=== PATIENT | female | born 1955 | race Caucasian/White ===

== ENCOUNTER 2021-04-30 14:49 | Outpatient (REF) | payer MEDICARE, OTHER, SELFPAY | END 2021-04-30 14:50 | disposition home or self-care (01) | LOC: HO.HMGCLDS 14:49 | PROVIDERS: Visit Provider Internal Medicine | DX: Z20.822 Contact with and (suspected) exposure to COVID-19 (principal) | CPT/HCPCS: C9803; U0003; U0005 ==

== ENCOUNTER 2021-08-10 12:15 | Outpatient (REF) | payer MEDICARE, OTHER, SELFPAY ==
[2021-08-10 12:27] LABS: MANUAL DIFF FLAG NO
[2021-08-10 12:37] LABS: Basophils Absolute Auto 0.1 X10*3/uL (0.0-0.2); Eosinophils Absolute Auto 0.2 X10*3/uL (0.0-0.4); Eosinophils Percent Auto 3.1 % (0-4); Hematocrit 38.1 % (37.0-47.0); Hemoglobin 12.2 g/dl (12.0-16.0); Imm Gran Abs Auto 0.01 X10*3/uL (0.00-0.03); Imm Gran Pct Auto 0.2 % (0.0-0.4); Lymphocytes Absolute Auto 1.6 X10*3/uL (1.2-4.9); Lymphocytes Percent Auto 30.3 % (20-40); Mean Corpuscular Hemoglobin 30.6 pg (27.0-33.0); Mean Corpuscular Volume 95.5 fL (80.0-98.0); Mean Platelet Volume 9.7 fL (9.4-12.3); Monocytes Absolute Auto 0.5 X10*3/uL (0.1-1.2); Monocytes Percent Auto 9.2 % (2-11); Neutrophils Absolute Auto 2.9 x10*3/uL (2.0-8.3); Neutrophils Percent Auto 56.2 % (45-73); Platelet Count 247 X10*3/uL (160-400); Red Blood Count 3.99 X10*6/uL (4.20-5.50); Red Cell Distribution Width 12.2 % (11.0-16.0); White Blood Count 5.2 X10*3/uL (4.8-10.8)
[2021-08-10 13:07] LABS: Alanine Aminotransferase 13 U/L (0-31); Albumin Level 4.3 g/dL (3.5-5.0); Alkaline Phosphatase 68 U/L (39-117); Anion Gap 13 (12-20); Aspartate Amino Transferase 22 U/L (5-31); Bilirubin Total 0.4 mg/dL (0.0-1.0); Blood Urea Nitrogen 16 mg/dL (9-16); Calcium 9.9 mg/dL (8.4-10.2); Carbon Dioxide 27 mmol/L (22-29); Chloride 105 mmol/L (96-108); Cholesterol 272 mg/dL; Estimated Glomerular Filt Rate > 60; Glucose Fasting 83 mg/dL (60-99); HDL Cholesterol 127 mg/dL; LDL Cholesterol Calculated 122 mg/dl; Potassium 4.8 mmol/L (3.3-5.1); Sodium 140 mmol/L (135-145); Total Protein 6.7 g/dL (6.5-8.0); Triglycerides 118 mg/dL
[2021-08-10 13:27] LABS: TSH reflex Free T4 1.58 uIU/mL (0.32-4.0); Vitamin D 25-OH Total 28.4 ng/mL (>30)
[2021-08-10 13:31] LABS: Appearance Urine HAZY; Color Urine YELLOW; Glucose Urine UA NEG (NEG); Leukocyte Esterase Urine NEG (NEG); Nitrite Urine NEG (NEG); PH 6.5 (5.0-8.0); Urine Blood NEG (NEG); Urine Ketones NEG (NEG); Urine Protein NEG (NEG-TRACE)
== END 2021-08-10 12:16 | disposition home or self-care (01) ==
LOC: HO.LAB 12:15
PROVIDERS: PCP Internal Medicine; Visit Provider Internal Medicine
DX: E78.00 Pure hypercholesterolemia, unspecified (principal); E55.9 Vitamin D deficiency, unspecified; I10 Essential (primary) hypertension
CPT/HCPCS: 36415; 80053; 80061; 81003; 82306; 84443; 85025

== ENCOUNTER 2022-04-06 10:37 | Outpatient (REF) | payer MEDICARE, OTHER, SELFPAY ==
--- NOTE | ~2022-04-06 | MM_ITS ---
EXAMINATION: BONE DENSITOMETRY CLINICAL INDICATION: Asymptomatic menopausal state. COMPARISON: This is the patient's baseline examination. TECHNIQUE: Using a [employer] DXA System (software version: 13.1) manufactured by [employer] [place], dual-energy x-ray absorptiometry was performed of the lumbar spine and left hip. The images are of good technical quality. Summary results are attached. FINDINGS: AP SPINE L1-L4: There is scoliosis present convex left. BMD 1.080 g/cm2, Z-score 1.5, T-score -0.8, normal. LEFT FEMUR, NECK: BMD 0.790 g/cm2, Z-score 0.3, T-score -1.8, osteopenia. LEFT FEMUR, TOTAL: BMD 0.766 g/cm2, Z-score 0.0, T-score -1.9, osteopenia. IDENTIFIED RISK FACTORS: Height loss. Menopause. HISTORY OF FRACTURE: None listed. MEDICATIONS: Vitamin D. ERT. MM/XR DEXA axial skeleton IMPRESSION: 1. DIAGNOSIS: Osteopenia based on the lowest T-score value of -1.9 in the femoral neck applying World Health Organization criteria. 2. 10-YEAR FRACTURE RISK PREDICTION, FRAX: Major osteoporotic fracture (clinical spine, forearm, hip or shoulder) 8.9%. Hip fracture 1.6%. 3. Treatment Recommendations: NOF guidelines recommend consideration for treatment in postmenopausal women and men age 50 and older presenting with the following: -A hip or vertebral (clinical or morphometric) fracture. -T-score less than or equal to -2.5 at the femoral neck or spine after appropriate evaluation to exclude secondary causes. -Low bone mass at the hip or spine and a 10-year fracture probability by FRAX of greater than or equal to 3% for hip fracture or greater than or equal to 20% for major osteoporotic fracture based on the [place] adapted WHO algorithm. 4. Other Recommendations: All treatment decisions require clinical judgment and consideration of individual patient factors, including patient preferences, comorbidities, previous drug use, risk factors not captured in the FRAX model (e.g. frailty, falls, vitamin D deficiency, increased bone turnover, interval significant decline in bone density) and possible under or overestimation of fracture risk by FRAX. Additional medical evaluation for secondary cause of low bone mineral density may be appropriate. FUTURE SCAN RECOMMENDATION: People with diagnosed cases of osteoporosis or at high risk for fracture should have regular bone mineral density tests. For patients eligible for Medicare, routine testing is allowed once every 2 years. The testing frequency can be increased to one year for patients who have rapidly progressing disease, those who are receiving or discontinuing medical therapy to restore bone mass, or have additional risk factors.
== END 2022-04-06 10:38 | disposition home or self-care (01) ==
LOC: HO.MAMMO 10:37
PROVIDERS: Visit Provider Internal Medicine
DX: Z13.820 Encounter for screening for osteoporosis (principal); Z78.0 Asymptomatic menopausal state
CPT/HCPCS: 77080

== ENCOUNTER 2023-02-02 09:12 | Outpatient (REF) | payer MEDICARE, OTHER, SELFPAY ==
[2023-02-02 09:33] LABS: MANUAL DIFF FLAG NO
[2023-02-02 10:07] LABS: Basophils Percent Auto 0.7 % (0-2); Eosinophils Absolute Auto 0.2 X10*3/uL (0.0-0.4); Eosinophils Percent Auto 5.7 % (0-4); Hematocrit 38.6 % (37.0-47.0); Hemoglobin 12.5 g/dl (12.0-16.0); Imm Gran Abs Auto 0.01 X10*3/uL (0.00-0.03); Imm Gran Pct Auto 0.2 % (0.0-0.4); Lymphocytes Absolute Auto 1.3 X10*3/uL (1.2-4.9); Lymphocytes Percent Auto 30.9 % (20-40); Mean Corpuscular HGB Conc 32.4 g/dl (31.0-35.0); Mean Corpuscular Hemoglobin 30.8 pg (27.0-33.0); Mean Corpuscular Volume 95.1 fL (80.0-98.0); Monocytes Absolute Auto 0.5 X10*3/uL (0.1-1.2); Monocytes Percent Auto 11.1 % (2-11); Neutrophils Absolute Auto 2.1 x10*3/uL (2.0-8.3); Neutrophils Percent Auto 51.4 % (45-73); Platelet Count 252 X10*3/uL (160-400); Red Blood Count 4.06 X10*6/uL (4.20-5.50); Red Cell Distribution Width 12.9 % (11.0-16.0); White Blood Count 4.1 X10*3/uL (4.8-10.8)
[2023-02-02 10:32] LABS: Appearance Urine Clear; Color Urine Yellow; Glucose Urine UA Negative (Negative); Leukocyte Esterase Urine Negative (Negative); Nitrite Urine Negative (Negative); Specific Gravity - Urine 1.015 (1.005-1.025); Urine Blood Negative (Negative); Urine Ketones Negative (Negative); Urine Protein Trace mg/dL (Neg-Trace)
[2023-02-02 10:57] LABS: Alanine Aminotransferase 12 U/L (0-31); Alkaline Phosphatase 62 U/L (39-117); Anion Gap 14 (12-20); Aspartate Amino Transferase 20 U/L (5-31); Bilirubin Total 0.5 mg/dL (0.0-1.0); Blood Urea Nitrogen 13 mg/dL (9-16); Calcium 9.6 mg/dL (8.4-10.2); Carbon Dioxide 26 mmol/L (22-29); Chloride 107 mmol/L (96-108); Cholesterol 264 mg/dL (<200); Estimated Glomerular Filt Rate > 60; Glucose Fasting 102 mg/dL (60-99); HDL Cholesterol 128 mg/dL (>40); LDL Cholesterol Calculated 120 mg/dL (<100); Potassium 4.2 mmol/L (3.3-5.1); Sodium 143 mmol/L (135-145); Total Protein 6.6 g/dL (6.5-8.0); Triglycerides 83 mg/dL (<150)
[2023-02-02 10:58] LABS: TSH reflex Free T4 2.01 uIU/mL (0.32-4.0); Vitamin D 25-OH Total 42.9 ng/mL (>30)
== END 2023-02-02 09:13 | disposition home or self-care (01) ==
LOC: HO.LAB 09:12
PROVIDERS: PCP Internal Medicine; Visit Provider Internal Medicine
DX: R30.0 Dysuria (principal); E78.00 Pure hypercholesterolemia, unspecified; E55.9 Vitamin D deficiency, unspecified; I10 Essential (primary) hypertension
CPT/HCPCS: 36415; 80053; 80061; 81003; 82306; 84443; 85025

== ENCOUNTER 2023-04-18 15:38 | Outpatient (AMB) | payer MEDICARE, OTHER, SELFPAY ==
[2023-04-18 16:04] VITALS: BP 124/80; BMI 15.8
--- NOTE | 2023-04-18 16:04 | A.OFFPC_ITS ---
Vital Signs 04/18/23 16:04 Height 5 ft 5 in Weight 95 lb 4 oz BMI 15.8 BP 124/80 Blood Pressure Location Lt brachial Position Sitting Pulse Source Pulse Oximeter Oxygen Delivery Method Room Air Intake Visit Reasons: HTN, osteopenia [employer] Consultant Required: No Accompanied by: Self / Same As Patient Allergies No Known Allergies Allergy (Verified 09/09/23 12:40) Medication List - Last Reconciled 04/18/23 by Ochoa Jaramillo MD acyclovir 200 mg PO TID 10 days carbamazepine 200 mg PO BID conj estrog-medroxyprogest torsten 0.45-1.5 mg (Prempro) 1 tab PO DAILY lisinopril 2.5 mg PO DAILY omeprazole 20 mg PO DAILY Tobacco use date assessed: 04/18/23 Fall risk assessment: No Falls in past year Last assessed Fall Risk: 04/18/23 Dental Screening Dental Screen Date: 04/18/23 Did you have a dental visit in the last 12 months?: Yes Did you have a dental problem in the last 6 months where you did not have access to dental care?: No Was dental information given to patient?: Patient has dentist HPI HTN, osteopenia HPI Details Patient comes in today for her follow up visit States that she feels okay She denies any headaches or dizziness Denies any chest pains, no SOB No nausea/vomiting, no abdominal pain No change in bowel habits noted Had her follow up labs done a couple of months ago - to discuss her results States that she has tried cutting back on her hormone pill as previously discussed but finds that she cannot take it at less than every other day as she would start to experience hot flashes and some menopausal symptoms when she cuts it back further from that and is requesting to allow her to just stay on every other day and allow her to live her life Is also requesting for Rx for an antibiotic that she can keep on hand in case she gets a flare up of her diverticulitis States that she will not take it unless absolutely needed and based on her past experiences, her outcome is usually much better and she recovers quicker if she is able to take her antibiotic earlier - states that her previous PCP has been doing this for her for years and it always ends up working out well for her and she does not necessarily have to take her antibiotic regularly and only when she gets a flare up of diverticulitis PFSH Medical History Diverticulitis Osteopenia GERD without esophagitis Colon cancer screening declined Recurrent cold sores Benign essential hypertension Trigeminal neuralgia of right side of face Surgical History History of surgery Family History Father Heart disease Diabetes Hypertension CVD (cardiovascular disease) Mother Brain tumor Brother Stroke Sister No problems noted. Sister No problems noted. Daughter No problems noted. Social History Housing: House Alcohol intake: current Alcohol intake frequency: holidays/special occasions only Patient Tobacco Use Status: Never used Tobacco e-Cigarette/Vaping Use: Never Used Second Hand Smoke Exposure: Yes service: No Current occupational status: retired Cognitive needs: No Hearing needs: No Vision needs: Yes (reading glasses) Questionnaire PHQ-9 Over the last 2 weeks, how often have you been bothered by any of the following problems? 1. Little interest or pleasure in doing things: not at all 2. Feeling down, depressed, or hopeless: not at all 3. Trouble falling or staying asleep, or sleeping too much: not at all 4. Feeling tired or having little energy: not at all 5. Poor appetite or overeating: not at all 6. Feeling bad about yourself - or that you are a failure or have let yourself or your family down: not at all 7. Trouble concentrating on things, such as reading the newspaper or watching television: not at all 8. Moving or speaking so slowly that other people could have noticed. Or the opposite - being so fidgety or restless that you have been moving around a lot more than usual: not at all 9. Thoughts that you would be better off or of hurting yourself in some way: not at all Total score: 0 Depression Screening Interpretation: Negative Depression Screening Done: Yes 04884 - PHQ-9 Billing: Yes Source: Developed by Drs. Guille Villa, Candy Bliss, Don Anderson and colleagues, with an educational macario from [employer]. Thrive Questionnaire Date Thrive assessed: 04/18/23 I am a: Patient What is your living situation today?: I have a steady place to live Within the past 12 months, did the food you bought not last and you didn't have the money to get more?: Never true Within the past 12 months, did you worry whether your food would run out before you got money to buy more?: Never true Do you have trouble paying for medicines?: No Do you have trouble getting transportation to medical appointments?: No Do you have trouble paying your heating and electricity bill?: No Do you have trouble taking care of your child, family member or friend?: No Do you have trouble with day-to-day activities such as bathing, preparing meals, shopping, managing finances, etc.?: No Are you currently unemployed and looking for a job?: No Are you interested in more education?: No Please select the resources that you would like help with: None Currently or been in a relationship where the following occur: no concerns reported AUDIT C Alcohol Use Questionnaire (AUDIT-C) 1. How often do you have a drink containing alcohol?: Monthly or less 2. How many drinks containing alcohol do you have on a typical day when you are drinking?: 1 or 2 3. How often do you have six or more drinks on one occasion?: Never Total Score: 1 Score Reviewed/Action Taken: Yes MARKEL-7 AMB Questionnaire MARKEL-7 Date MARKEL - 7 assessed: 04/18/23 Feeling nervous, anxious, or on edge: 0 = Not at all Not being able to stop or control worryin = Not at all Worrying too much about different things: 0 = Not at all Trouble relaxin = Not at all Being so restless that it is hard to sit still: 0 = Not at all Becoming easily annoyed or irritable: 0 = Not at all Feeling afraid as if something awful might happen: 0 = Not at all Total MARKEL-7 score (0-4 normal; 5-9 mild; 10-14 moderate; 15-21 severe): 0 Source: Developed by Drs. Guille Villa, Candy Bliss, Don Anderson and colleagues, with an educational macario from [employer]. Review of Systems Const Denies chills, Denies fatigue, Denies fever(s) and Denies headache(s) ENT Details: occasional cold sores Denies dysphagia, Denies dizziness, Denies otalgia, Denies headache(s), Denies neck pain, Denies odynophagia and Denies sore throat Card Denies chest pain, Denies palpitations and Denies dyspnea Resp Denies cough, Denies dyspnea and Denies wheezing GI Denies abdominal pain, Denies constipation, Denies dysphagia, Denies heartburn, Denies diarrhea, Denies nausea, Denies odynophagia and Denies vomiting Denies difficulty voiding, Denies nocturia, Reports hot flashes (see HPI), Denies dysuria and Denies urinary urgency Musc Denies back pain, Denies arthralgias and Denies neck pain Skin/Breast Denies rash Neuro Denies dizziness and Denies headache(s) Psych Denies anxiety and Denies depression Endo Denies fatigue and Denies palpitations Alan/Lymph Denies easy bruising Aller/Immun Denies wheezing Physical exam (Primary Care) Vital Signs: Last Vital Signs BP 124/80 04/18/23 16:04 Oxygen Delivery Method Room Air 04/18/23 16:04 BMI result Body Mass Index 15.8 Tobacco/Smoking Status: Tobacco use Status Tobacco use date assessed 04/18/23 04/18/23 16:05 Patient Tobacco Use Status Never used Tobacco 04/18/23 16:05 e-Cigarette/Vaping Use Never Used 04/18/23 16:05 PHQ-9: PHQ-9 Score PHQ-9: Total score 0 04/19/23 09:26 Depression Screening Interpretation: Negative Thrive Assessment: Date of Thrive Assessment Date Thrive assessed 04/18/23 04/18/23 16:05 Currently or been in a relationship where the following occur: no concerns reported Const General: no acute distress and alert HENMT Ears: TM's normal bilaterally and EAC's normal Throat: Yes posterior oropharynx normal and Yes tonsils normal (no TP congestion) Neck Neck: Yes no lymphadenopathy and Yes supple Resp Auscultation: clear to auscultation bilaterally, no rales and no wheezes Cardio Rate: regular rate Rhythm: regular rhythm Heart sounds: no murmurs GI Palpation (GI): Soft to palpation and nontender Auscultation: normal bowel sounds General: Yes no CVA tenderness Back/Spine/Pelvis Back: no CVA tenderness Skin Rashes: no rashes Extrem General: Yes no clubbing, cyanosis or edema Results Reviewed Results Reviewed: Laboratory Tests 02/02/23 02/02/23 09:32 09:35 WBC 4.1 L Hgb 12.5 Hct 38.6 Plt Count 252 Sodium 143 Potassium 4.2 Creatinine 0.79 Estimated GFR > 60 Fasting Glucose 102 H Calcium 9.6 AST 20 ALT 12 Triglycerides 83 Cholesterol 264 H LDL Cholesterol, Calc 120 H HDL Cholesterol 128 25-OH Vitamin D Total 42.9 TSH 2.01 Ur Specific [place] 1.015 Urine Protein Trace Urine Glucose (UA) Negative Assessment and Plan Assessment & Plan (1) Trigeminal neuralgia of right side of face: Code(s): G50.0 - Trigeminal neuralgia Plan: Patient used to take Carbamazepine 200 mg BID but states that she has been asymptomatic and doing well off Rx for a few months now; states that she will just take her Rx again when needed Was seen for follow up by neurosurgery (Dr. Sebastian) months ago but as she has no acute symptoms at the time, no intervention is needed and she was advised to just follow up with Dr. 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 Plan: Continue Acyclovir 200 mg TID PRN (4) GERD without esophagitis: Code(s): K21.9 - Gastro-esophageal reflux disease without esophagitis Plan: Reinforced dietary restrictions Continue Omeprazole 20 mg QD PRN (5) Menopausal symptoms: Code(s): N95.1 - Menopausal and female climacteric states Plan: Continue Prempro 0.45-1.5 mg QD We have previously advised her to try coming off her hormone Rx as hormonal therapy carries some risks and is no longer recommended routinely for postmenopausal women Patient states that she has tried cutting back on her hormone pill as discussed but finds that she cannot take it at less than every other day as she would start to experience increasing hot flashes and some menopausal symptoms when she cuts it back further from that - is requesting for us to allow her to just stay on every other day dosing and allow her to live her life (6) Osteopenia: Code(s): M85.80 - Other specified disorders of bone density and structure, unspecified site Qualifiers: Osteopenia location: unspecified Qualified Code(s): M85.80 - Other specified disorders of bone density and structure, unspecified site Plan: Her repeat BMD done in March 2022 revealed (+) osteopenia based on the lowest T-score value of -1.9 in the femoral neck Patient is encouraged to continue to stay active and exercise regularly, and to continue taking her daily Calcium and Vitamin D supplements Will consider repeating her BMD in 2 to 3 years for follow up Plan To return as scheduled in July 2023 for her next annual Wellness Exam Medications: New amoxicillin-pot clavulanate 875-125 mg 1 tab PO BID 14 tabs 0RF diverticulitis 7 days Changed From conj estrog-medroxyprogest torsten 0.45-1.5 mg 1 tab PO DAILY 28 tabs 2RF To conj estrog-medroxyprogest torsten 0.45-1.5 mg (Prempro) 1 tab PO .QOD 28 tabs 3RF Coding Level of Care Code Est Pt Level 4 (51687) Diagnoses Trigeminal neuralgia of right side of face G50.0 Benign essential hypertension I10 Recurrent cold sores B00.1 GERD without esophagitis K21.9 Menopausal symptoms N95.1 Osteopenia, unspecified location M85.80 Osteopenia location: unspecified
== END 2023-04-18 17:00 | disposition home or self-care (01) ==
PROVIDERS: PCP Internal Medicine; Visit Provider Internal Medicine
DX: G50.0 Trigeminal neuralgia (principal); I10 Essential (primary) hypertension; B00.1 Herpesviral vesicular dermatitis; K21.9 Gastro-esophageal reflux disease without esophagitis; N95.1 Menopausal and female climacteric states; M85.80 Other specified disorders of bone density and structure, unspecified site
CPT/HCPCS: 99214

== ENCOUNTER 2023-09-09 12:14 | Outpatient (AMB) | payer MEDICARE, OTHER, SELFPAY ==
--- NOTE | 2023-09-09 12:25 | A.OFFPC_ITS ---
Intake Visit Reasons: SWV [id number] Allergies No Known Allergies Allergy (Verified 04/18/23 16:45) Tobacco use date assessed: 04/18/23 Dental Screening Dental Screen Date: 04/18/23 [facility] Medical History Diverticulitis Osteopenia GERD without esophagitis Colon cancer screening declined Recurrent cold sores Benign essential hypertension Trigeminal neuralgia of right side of face Surgical History History of surgery Family History Father Heart disease Diabetes Hypertension CVD (cardiovascular disease) Mother Brain tumor Brother Stroke Sister No problems noted. Sister No problems noted. Daughter No problems noted. Social History Housing: House Alcohol intake: current Alcohol intake frequency: holidays/special occasions only Patient Tobacco Use Status: Never used Tobacco e-Cigarette/Vaping Use: Never Used Second Hand Smoke Exposure: Yes service: No Current occupational status: retired Cognitive needs: No Hearing needs: No Vision needs: Yes (reading glasses) Questionnaire Thrive Questionnaire Date Thrive assessed: 04/18/23 MARKEL-7 AMB Questionnaire MARKEL-7 Date MARKEL - 7 assessed: 04/18/23 Source: Developed by Drs. Guille Villa, Candy Bliss, Don Anderson and colleagues, with an educational macario from [employer]. Physical exam (Primary Care) Tobacco/Smoking Status: Tobacco use Status Tobacco use date assessed 04/18/23 04/18/23 16:05 Patient Tobacco Use Status Never used Tobacco 04/18/23 16:05 e-Cigarette/Vaping Use Never Used 04/18/23 16:05 Thrive Assessment: Date of Thrive Assessment Date Thrive assessed 04/18/23 04/18/23 16:05 Coding
[2023-09-09 12:28] VITALS: BP 96/70; PULSE 70; O2SAT 99; BMI 16.0
--- NOTE | 2023-09-09 12:29 | A.OFFVIS_ITS ---
Intake Vital Signs 09/09/23 12:28 Height 5 ft 5 in Weight 96 lb 2 oz BMI 16.0 BP 96/70 Blood Pressure Location Lt brachial Position Sitting Pulse 70 Pulse Source Pulse Oximeter Pulse Oximetry (%) 99 Oxygen Delivery Method Room Air Intake Visit Reasons: JANE G0439 Intake Note: Patient is here for an Annual Wellness Visit. 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 Accompanied by: Self / Same As Patient Allergies No Known Allergies Allergy (Verified 09/09/23 12:40) Medication List - Last Reconciled 09/09/23 by Ochoa Jaramillo MD acyclovir 200 mg PO TID 10 days conj estrog-medroxyprogest torsten 0.45-1.5 mg (Prempro) 1 tab PO .QOD lisinopril 2.5 mg PO DAILY omeprazole 20 mg PO ONCE PRN HPI JANE G0439 HPI Details Patient comes in today for her annual Medicare Wellness Exam and follow up visit States that she currently feels okay She denies any headaches or dizziness Denies any chest pains, no SOB No nausea/vomiting, no abdominal pain No change in bowel habits noted She denies any acute urinary symptoms States that she continues to experience recurrent menopausal symptoms but her current regimen (Prempro) taken 2 to 3 times a week has been working very well for her - needs a couple of her Rx refilled IPPE/AWV: c/o of Annual Wellness Visit, subsequent visit. Medical / Social History Reviewed Past Medical History Yes . [place] of Care / Care Team list updated Yes . Surgical/Hospitalization History Yes . Current Medications (including OTC and supplements) Yes . Family History Yes . Tobacco Control form Yes . AUDIT-C (Alcohol use) form Yes . Illicit drug use in Social History Yes . Current diagnosis of depression? No Appropriate PHQ2/PHQ9 completed Yes . Data entered by Bilingual Account Manager and reviewed by provider Home Safety Throw rugs? No Grab bars? No Raised toilet seats? No Working smoke detectors? Yes Working carbon monoxide detectors? Yes Data entered by Bilingual Account Manager and reviewed by provider Activities of Daily Living (ADLs) Difficulty bathing or showering? No Difficulty dressing? No Difficulty using the toilet? No Difficulty getting in and out of bed? No Difficulty walking? No Receives help from another person with any of the above tasks? No Instrumental Activities of Daily Living (IADLs) Uses the telephone without help Gets to places out of walking distance without help Goes shopping for groceries without help Prepares own meals without help Does own minor home maintenance without help Does own laundry without help Does own housework without help Manages own money without help Currently takes medications? Yes Takes medication without help End-of-Life Planning Discussed advance directive Yes Advance directive on file Discussed wishes expressed in advance directive agreed to following patient's wishes Fall Risk: Fall History Have you had any falls with injury in the past year? No . Have you had two or more falls in the past year? No . Fall Risk Assessment: No falls in the past year . HRA filled out by the patient, reviewed by Provider and scanned. [facility] Medical History Diverticulitis Osteopenia GERD without esophagitis Colon cancer screening declined Recurrent cold sores Benign essential hypertension Trigeminal neuralgia of right side of face Surgical History History of surgery Family History Father Heart disease Diabetes Hypertension CVD (cardiovascular disease) Mother Brain tumor Brother Stroke Sister No problems noted. Sister No problems noted. Daughter No problems noted. Social History Housing: House Alcohol intake: current Alcohol intake frequency: holidays/special occasions only Patient Tobacco Use Status: Never used Tobacco e-Cigarette/Vaping Use: Never Used Second Hand Smoke Exposure: Yes service: No Current occupational status: retired Cognitive needs: No Hearing needs: No Vision needs: Yes (reading glasses) Questionnaire Medicare Wellness Checkup [age] What gender do you identify with?: female During the past 4 weeks, how much have you been bothered by emotional problems such as feeling anxious, depressed, irritable, sad or downhearted, and blue?: not at all During the past 4 weeks, has your physical & emotional health limited your social activities with family, friends, neighbors, or groups?: not at all During the past 4 weeks, how much bodily pain have you generally had?: very mild pain During the past 4 weeks, was someone available to help you if you needed & wanted help?: yes, as much as I wanted During the past 4 weeks, what was the hardest physical activity you could do for at least 2 minutes?: heavy Can you get to places out of walking distance without help? (For eg., can you travel alone on buses, taxis or drive your car?): Yes Can you go shopping for groceries or clothes without someone's help?: Yes Can you prepare your own meals?: Yes Can you do your housework without help?: Yes Because of any health problems, do you need the help of another person with your personal care needs such as eating, bathing, dressing or getting around the house?: No Can you handle your own money without help?: Yes During the past 4 weeks, how would you rate your health in general?: very good During the past 4 weeks how have things been going for you?: very well; could hardly better Are you having difficulties driving your car?: no Do you always fasten your seat belt when you are in a car?: yes, usually During past 4 weeks, have you been bothered by the following: never: Falling or dizzy when standing up, Sexual problems?, Trouble eating well?, Teeth or denture problems?, Problems using the telephone? and Tiredness or fatigue? Have you fallen 2 or more times in the past year?: No Are you afraid of falling?: No Are you a smoker?: no During the past 4 weeks, how many drinks of wine, beer, or other alcoholic beverages did you have?: 2-5 drinks per week Do you exercise for about 20 minutes 3 or more times a week?: yes, all the time Have you been given information to help with the following?: no: Hazards in your house that might hurt you? and no: Keeping track of your medications? How often do you have trouble taking medicines the way you have been told to take them?: I always take medicine as prescribed How confident are you that you can control & manage most of your health problems?: very confident What is your race?: White Mini Mental State Exam (MMSE) Orientation What is the (year) (season) (date) (day) (month)?: year, season, date, day and month Where are we (state) (county) (town or city) (hospital) (floor)?: state, county, town or city, hospital/clinic and floor Score Score: 10 Activity of Daily Living Bathing - sponge bath, tub bath or shower: receives no assistance (gets in/out by self, if usual bathing means Dressing - getting clothes from closets & drawers, including inner/outer garments & fasteners.: gets clothes & gets completely dressed without help Toileting - going to the 'toilet room' for urine/bowel elimination & cleaning self/arranging clothes: goes to toilet room, cleans self, arranges clothes without help Transfer: moves in & out of bed and chair without help (may use support object) Continence: controls urination/bowel movements completely by self Feeding: feeds self without help Total Score: 0 Information obtained from: patient Using telephone: independent Traveling: independent Shopping: independent Preparing meals: independent Housework: independent Taking medicine: independent Managing money: independent PHQ-9 Over the last 2 weeks, how often have you been bothered by any of the following problems? 1. Little interest or pleasure in doing things: not at all 2. Feeling down, depressed, or hopeless: not at all 3. Trouble falling or staying asleep, or sleeping too much: not at all 4. Feeling tired or having little energy: not at all 5. Poor appetite or overeating: not at all 6. Feeling bad about yourself - or that you are a failure or have let yourself or your family down: not at all 7. Trouble concentrating on things, such as reading the newspaper or watching television: not at all 8. Moving or speaking so slowly that other people could have noticed. Or the opposite - being so fidgety or restless that you have been moving around a lot more than usual: not at all 9. Thoughts that you would be better off or of hurting yourself in some way: not at all Total score: 0 Depression Screening Interpretation: Negative Depression Screening Done: Yes 01702 - PHQ-9 Billing: Yes Source: Developed by Drs. Guille Villa, Don Flood and colleagues, with an educational macario from [employer]. Thrive Questionnaire Date Thrive assessed: 09/09/23 I am a: Patient What is your living situation today?: I have a steady place to live Within the past 12 months, did the food you bought not last and you didn't have the money to get more?: Never true Within the past 12 months, did you worry whether your food would run out before you got money to buy more?: Never true Do you have trouble paying for medicines?: No Do you have trouble getting transportation to medical appointments?: No Do you have trouble paying your heating and electricity bill?: No Do you have trouble taking care of your child, family member or friend?: No Do you have trouble with day-to-day activities such as bathing, preparing meals, shopping, managing finances, etc.?: No Are you currently unemployed and looking for a job?: No Are you interested in more education?: No Please select the resources that you would like help with: None Currently or been in a relationship where the following occur: no concerns reported THRIVE Score: 0 MARKEL-7 AMB Questionnaire MARKEL-7 Date MARKEL - 7 assessed: 09/09/23 Feeling nervous, anxious, or on edge: 0 = Not at all Not being able to stop or control worryin = Not at all Worrying too much about different things: 0 = Not at all Trouble relaxin = Not at all Being so restless that it is hard to sit still: 0 = Not at all Becoming easily annoyed or irritable: 0 = Not at all Feeling afraid as if something awful might happen: 0 = Not at all Total MARKEL-7 score (0-4 normal; 5-9 mild; 10-14 moderate; 15-21 severe): 0 Source: Developed by Drs. Guille Villa, Don Flood and colleagues, with an educational macario from [employer]. MARKEL-7 Assessment Billing MARKEL-7 Assessment Tool: MARKEL-7 Assessment 75670 Review of Systems Const Denies chills, Denies fatigue, Denies fever(s) and Denies headache(s) Eyes Denies blurry vision, Denies change in vision, Denies irritation and Denies itchy eyes ENT Details: occasional cold sores Denies dysphagia, Denies dizziness, Denies otalgia, Denies headache(s), Denies neck pain, Denies odynophagia, Denies sinus pain and Denies sore throat Card Denies chest pain, Denies palpitations and Denies dyspnea Resp Denies chest congestion, Denies cough, Denies dyspnea and Denies wheezing GI Denies abdominal pain, Denies constipation, Denies dysphagia, Denies heartburn, Denies diarrhea, Denies nausea, Denies odynophagia and Denies vomiting Denies difficulty voiding, Denies nocturia, Reports hot flashes (on and off), Denies dysuria and Denies urinary urgency Musc Denies back pain, Denies arthralgias, Denies joint swelling, Denies muscle weakness and Denies neck pain Skin/Breast Denies breast pain, Denies breast mass, Denies change in pigmentation, Denies lesions, Denies rash and Denies unusual bruising Neuro Denies dizziness and Denies headache(s) Psych Denies anxiety and Denies depression Endo Denies fatigue and Denies palpitations Alan/Lymph Denies easy bruising Aller/Immun Denies itchy eyes and Denies wheezing Physical Exam Vital Signs: Last Vital Signs Pulse 70 09/09/23 12:28 BP 96/70 09/09/23 12:28 Pulse Ox 99 09/09/23 12:28 Oxygen Delivery Method Room Air 09/09/23 12:28 BMI result Body Mass Index 16.0 IPPE/AWV: Balance Romberg Yes . Tandem walk Yes . Walk and Turn Yes . Rise from sit to stand Yes . Vision Corrective lens No Vision screen pass Hearing Whisper test pass . Urinary incont. no. EKG Not clinically necessary. Const General: no acute distress and alert Orientation/consciousness: patient oriented x3 HEENT Head: Yes normocephalic and Yes atraumatic Ears: TM's normal bilaterally and EAC's normal General nose exam: No nasal discharge present Face and sinus: Yes normal facial exam and Yes sinuses nontender Throat: Yes posterior oropharynx normal and Yes tonsils normal (no TP congestion noted) Eyes Eyelids: Yes eyelids normal Conjunctivae: conjunctivae normal Pupils: Equal, round and reactive pupils present EOM: EOMs intact bilaterally Neck Neck: Yes no lymphadenopathy and Yes supple Thyroid: Thyroid normal Resp Auscultation: clear to auscultation bilaterally, no rales and no wheezes Cardio Rate: regular rate Rhythm: regular rhythm Heart sounds: no murmurs GI Palpation (GI): Soft to palpation, nontender and No hepatosplenomegaly present Auscultation: normal bowel sounds General: Yes no CVA tenderness Back/Spine/Pelvis Back: no CVA tenderness Thoracic/Lumbar Spine: thoracic and lumbar spine normal to inspection Skin Lesions: no lesions Rashes: no rashes Neuro General: patient oriented x3, moves all extremities, no focal motor deficits and CN's II-XI intact bilaterally Cranial nerves: Yes Equal, round and reactive pupils present Cognition (Neuro): normal cognition Gait exam (Neuro): Normal gait present Extrem General: Yes no clubbing, cyanosis or edema Assessment & Plan Assessment & Plan (1) Medicare annual wellness visit, subsequent: Code(s): Z00.00 - Encounter for general adult medical examination without abnormal f indings Plan: HRA form completed and discussed with patient; form will be scanned into patient's chart Patient continues to decline referral for screening colonoscopy; states that she has Hx of diverticulitis and does not want to risk triggering her diverticulitis by going for a colonoscopy States that she had a Cologuard testing done about 2 to 3 years ago that came out negative and would be willing to get this done again - Cologuard ordered Also has not had a mammogram done in a few years now; states that she never had an abnormal mammogram in the past when she was going for her yearly mammogram regularly for years She now agrees to go for at least one more mammogram - screening mammogram ordered Also has not had her yearly pap and account services representative exam done in a few years now and does not wish to get these done anymore (2) Trigeminal neuralgia of right side of face: Code(s): G50.0 - Trigeminal neuralgia Plan: Continue Carbamazepine 200 mg 1/2 to 1 tablet BID - takes this PRN now as she had not had a flare up in a while Will consider referring back to neurosurgery (Dr. Sebastian) for further management and repeat glycerol rhizotomy only if needed (3) Benign essential hypertension: Code(s): I10 - Essential (primary) hypertension Plan: Reinforced low sodium diet - goal is systolic BP of at least 130 mm or less She has Lisinopril 2.5 mg QD that she admits taking only as needed - recalls feeling dizzy often when she was taking this daily in the past States that she has not taken this in the past couple of weeks but took her dose this morning before coming in - BP is lower today at 96/70 Have advised patient to now completely stop taking her Lisinopril as it does not look like she really needs to stay on it at this time Have advised her to at least get her blood pressure checked a couple of times a month just to keep an eye on it Will have her get her repeat/follow up labs in 6 months (4) Recurrent cold sores: Code(s): B00.1 - Herpesviral vesicular dermatitis Plan: Continue Acyclovir 200 mg TID PRN - Rx refilled (5) GERD without esophagitis: Code(s): K21.9 - Gastro-esophageal reflux disease without esophagitis Plan: Dietary restrictions reinforced Continue Omeprazole 20 mg QD - takes this also only as needed now (6) Osteopenia: Code(s): M85.80 - Other specified disorders of bone density and structure, unspecified site Qualifiers: Osteopenia location: unspecified Qualified Code(s): M85.80 - Other specified disorders of bone density and structure, unspecified site Plan: BMD done back in March 2022 revealed (+) osteopenia based on the lowest T- score value of -1.9 in the femoral neck States that she had a BMD done several years ago in [place] but as we do not have a copy of this to compare against her current results and patient is not sure now where she had it done, we will consider her recent BMD in March 2022 as her index scan at this time Patient is encouraged to continue to stay active and exercise regularly, and to continue taking her daily Calcium and Vitamin D supplements We will consider getting a repeat BMD in 2 to 3 years for follow up (7) Menopausal symptoms: Code(s): N95.1 - Menopausal and female climacteric states Plan: States that she tried cutting back and weaning herself off her BCP/hormone Rx previously but finds that taking it less than 3 times a week results in a significant increase in her hot flashes - states that she has just been taking her Prempro at 2 to 3 times a week regularly now Discussed with patient that we now have Veozah available and this is actually indicated for menopausal symptoms with much less potential side effects compared to hormonal therapy and if she wants, we can try switching her over but patient DECLINED and prefers to continue on her current Rx (8) Colon cancer screening: Code(s): Z12.11 - Encounter for screening for malignant neoplasm of colon Plan: She continues to decline referral for colonoscopy but agreed to get a repeat Cologuard done - test ordered (9) Breast cancer screening by mammogram: Code(s): Z12.31 - Encounter for screening mammogram for malignant neoplasm of breast Plan: Patient agreed to get a repeat mammogram now - has not had one in years - but states that if this comes back negative, she does not wish to continue with yearly screening any longer Plan Follow up in 6 months Orders: Orders MM tomosynthesis screening BI Today Z12.31 - Encounter for screening mammogram for malignant neoplasm of breast Complete Blood Count Auto Diff 6 Months D64.9 - Anemia, unspecified Comprehensive [place]. Panel Fast 6 Months E78.00 - Pure hypercholesterolemia, unspecified Lipid Panel 6 Months E78.00 - Pure hypercholesterolemia, unspecified UA CC w/rflx Micro + Cult 6 Months R30.0 - Dysuria TSH reflex Free T4 6 Months E78.00 - Pure hypercholesterolemia, unspecified Vitamin D 25-OH Total 6 Months E55.9 - Vitamin D deficiency, unspecified Referrals Cologuard Test Z12.11 - Encounter for screening for malignant neoplasm of colon Medications: Refilled conj estrog-medroxyprogest torsten 0.45-1.5 mg (Prempro) 1 tab PO .QOD 28 tabs 3RF acyclovir 200 mg PO TID 10 days 30 caps 3RF B00.1 - Herpesviral vesicular dermatitis Quality Reporting (2019) Depression/Bipolar (159/160/161/177) PHQ-9: Total score: 0 Coding Level of Care Code Medicare Subsequent (G0439) Est Pt Level 4 (69114) Diagnoses Medicare annual wellness visit, subsequent Z00.00 Trigeminal neuralgia of right side of face G50.0 Benign essential hypertension I10 Recurrent cold sores B00.1 GERD without esophagitis K21.9 Osteopenia, unspecified location M85.80 Osteopenia location: unspecified Menopausal symptoms N95.1 Colon cancer screening Z12.11 Breast cancer screening by mammogram Z12.31 Additional Codes MARKEL-7 Assessment Billing - MARKEL-7 Assessment Tool: MARKEL-7 Assessment [id number] ([id number])
== END 2023-09-09 12:55 | disposition home or self-care (01) ==
PROVIDERS: PCP Internal Medicine; Visit Provider Internal Medicine
DX: Z00.00 Encounter for general adult medical examination without abnormal findings (principal); G50.0 Trigeminal neuralgia; I10 Essential (primary) hypertension; B00.1 Herpesviral vesicular dermatitis; K21.9 Gastro-esophageal reflux disease without esophagitis; M85.80 Other specified disorders of bone density and structure, unspecified site; N95.1 Menopausal and female climacteric states; Z12.11 Encounter for screening for malignant neoplasm of colon; Z12.31 Encounter for screening mammogram for malignant neoplasm of breast
CPT/HCPCS: 99214; G0439

== ENCOUNTER 2023-09-27 11:26 | Outpatient (REF) | payer MEDICARE, OTHER, SELFPAY | END 2023-09-27 11:27 | disposition home or self-care (01) | LOC: HO.MAMMO 11:26 | PROVIDERS: PCP Internal Medicine; Visit Provider Internal Medicine | DX: Z12.31 Encounter for screening mammogram for malignant neoplasm of breast (principal) | CPT/HCPCS: 77063; 77067 ==

== ENCOUNTER → 2023-09-27 11:45 | Outpatient (BNV) | payer MEDICARE, OTHER, SELFPAY | PROVIDERS: PCP Internal Medicine; Visit Provider Radiology Diagnostic Radiology | DX: Z12.31 Encounter for screening mammogram for malignant neoplasm of breast (principal) | CPT/HCPCS: 77063; 77067 ==

== ENCOUNTER 2024-03-14 08:26 | Outpatient (REF) | payer MEDICARE, OTHER, SELFPAY ==
[2024-03-14 08:56] LABS: MANUAL DIFF FLAG NO
[2024-03-14 09:19] LABS: Basophils Percent Auto 0.8 % (0-2); Eosinophils Absolute Auto 0.2 X10*3/uL (0.0-0.4); Eosinophils Percent Auto 4.3 % (0-4); Hematocrit 34.8 % (37.0-47.0); Hemoglobin 11.4 g/dl (12.0-16.0); Imm Gran Abs Auto 0.01 X10*3/uL (0.00-0.03); Imm Gran Pct Auto 0.3 % (0.0-0.4); Lymphocytes Absolute Auto 1.4 X10*3/uL (1.2-4.9); Lymphocytes Percent Auto 35.4 % (20-40); Mean Corpuscular HGB Conc 32.8 g/dl (31.0-35.0); Mean Corpuscular Hemoglobin 31.1 pg (27.0-33.0); Mean Corpuscular Volume 95.1 fL (80.0-98.0); Monocytes Absolute Auto 0.4 X10*3/uL (0.1-1.2); Monocytes Percent Auto 10.1 % (2-11); Neutrophils Absolute Auto 1.9 x10*3/uL (2.0-8.3); Neutrophils Percent Auto 49.1 % (45-73); Platelet Count 221 X10*3/uL (160-400); Red Blood Count 3.66 X10*6/uL (4.20-5.50); Red Cell Distribution Width 12.3 % (11.0-16.0)
[2024-03-14 09:29] LABS: Appearance Urine Clear; Color Urine Yellow; Glucose Urine UA Negative (Negative); Leukocyte Esterase Urine Negative (Negative); Nitrite Urine Negative (Negative); PH 6.5 (5.0-9.0); Urine Blood Negative (Negative); Urine Ketones Negative (Negative); Urine Protein Negative (Neg-Trace)
[2024-03-14 09:56] LABS: Alanine Aminotransferase 14 U/L (0-31); Albumin Level 3.8 g/dL (3.5-5.0); Alkaline Phosphatase 57 U/L (39-117); Anion Gap 10 (12-20); Aspartate Amino Transferase 19 U/L (5-31); Bilirubin Total 0.6 mg/dL (0.0-1.0); Blood Urea Nitrogen 13 mg/dL (9-16); Calcium 9.1 mg/dL (8.4-10.2); Carbon Dioxide 28 mmol/L (22-29); Chloride 107 mmol/L (96-108); Cholesterol 237 mg/dL (<200); Estimated Glomerular Filt Rate > 60; Glucose Fasting 90 mg/dL (60-99); HDL Cholesterol 116 mg/dL (>40); LDL Cholesterol Calculated 103 mg/dL (<100); Potassium 3.9 mmol/L (3.3-5.1); Sodium 141 mmol/L (135-145); Total Protein 6.3 g/dL (6.5-8.0); Triglycerides 91 mg/dL (<150)
[2024-03-14 10:18] LABS: TSH reflex Free T4 2.12 uIU/mL (0.32-4.0); Vitamin D 25-OH Total 34.2 ng/mL (>30)
== END 2024-03-14 08:27 | disposition home or self-care (01) ==
LOC: HO.LAB 08:26
PROVIDERS: PCP Internal Medicine; Visit Provider Internal Medicine
DX: D64.9 Anemia, unspecified (principal); E78.00 Pure hypercholesterolemia, unspecified; R30.0 Dysuria; E55.9 Vitamin D deficiency, unspecified
CPT/HCPCS: 36415; 80053; 80061; 81003; 82306; 84443; 85025

== ENCOUNTER 2024-03-19 10:34 | Outpatient (AMB) | payer MEDICARE, OTHER, SELFPAY ==
[2024-03-19 10:37] VITALS: BP 112/82; PULSE 63; O2SAT 96; BMI 15.9
--- NOTE | 2024-03-19 10:37 | A.OFFPC_ITS ---
Vital Signs 03/19/24 10:37 Height 5 ft 5 in Weight 95 lb 6 oz BMI 15.9 BP 112/82 Blood Pressure Location Lt brachial Position Sitting Pulse 63 Pulse Source Pulse Oximeter Pulse Oximetry (%) 96 Oxygen Delivery Method Room Air Intake Visit Reasons: 6mth f/u [place] Required: No Accompanied by: Self / Same As Patient Allergies No Known Allergies Allergy (Verified 03/19/24 11:03) Medication List - Last Reconciled 03/19/24 by Ochoa Jaramillo MD acyclovir 200 mg PO TID 10 days conj estrog-medroxyprogest torsten 0.45-1.5 mg (Prempro) 1 tab PO .QOD omeprazole 20 mg PO ONCE PRN Tobacco use date assessed: 03/19/24 Fall risk assessment: No Falls in past year Last assessed Fall Risk: 03/19/24 Dental Screening Dental Screen Date: 03/19/24 Did you have a dental visit in the last 12 months?: Yes Did you have a dental problem in the last 6 months where you did not have access to dental care?: No Was dental information given to patient?: Patient has dentist HPI 6mth f/u HPI Details Patient comes in today for her follow up visit States that she feels okay She denies any headaches or dizziness Denies any chest pains, no SOB No nausea/vomiting, no abdominal pain No change in bowel habits noted Needs a couple of her Rx refilled She had her follow up labs done a few days ago - to discuss her results She had her mammogram done at the end of August 2023 but admits that she did not complete and send in her Cologuard test kit as she decided she did not want to do it after giving it some thought [facility] Medical History Scoliosis Diverticulitis Osteopenia GERD without esophagitis Colon cancer screening declined Recurrent cold sores Benign essential hypertension Trigeminal neuralgia of right side of face Surgical History History of surgery Family History Father Heart disease Diabetes Hypertension CVD (cardiovascular disease) Mother Brain tumor Brother Stroke Sister No problems noted. Sister No problems noted. Daughter No problems noted. Social History Housing: House Alcohol intake: current Alcohol intake frequency: holidays/special occasions only Patient Tobacco Use Status: Never used Tobacco e-Cigarette/Vaping Use: Never Used Second Hand Smoke Exposure: Yes service: No Current occupational status: retired Cognitive needs: No Hearing needs: No Vision needs: Yes (reading glasses) Questionnaire PHQ-9 Over the last 2 weeks, how often have you been bothered by any of the following problems? 1. Little interest or pleasure in doing things: not at all 2. Feeling down, depressed, or hopeless: not at all 3. Trouble falling or staying asleep, or sleeping too much: not at all 4. Feeling tired or having little energy: not at all 5. Poor appetite or overeating: not at all 6. Feeling bad about yourself - or that you are a failure or have let yourself or your family down: not at all 7. Trouble concentrating on things, such as reading the newspaper or watching television: not at all 8. Moving or speaking so slowly that other people could have noticed. Or the opposite - being so fidgety or restless that you have been moving around a lot more than usual: not at all 9. Thoughts that you would be better off or of hurting yourself in some way: not at all Total score: 0 Depression Screening Interpretation: Negative Depression Screening Done: Yes 97160 - PHQ-9 Billing: Yes Source: Developed by Drs. Guille Villa, Candy Bliss, Don Anderson and colleagues, with an educational macario from [employer]. Thrive Questionnaire Date Thrive assessed: 03/19/24 I am a: Patient What is your living situation today?: I have a steady place to live Within the past 12 months, did the food you bought not last and you didn't have the money to get more?: Never true Within the past 12 months, did you worry whether your food would run out before you got money to buy more?: Never true Do you have trouble paying for medicines?: No Do you have trouble getting transportation to medical appointments?: No Do you have trouble paying your heating and electricity bill?: No Do you have trouble taking care of your child, family member or friend?: No Do you have trouble with day-to-day activities such as bathing, preparing meals, shopping, managing finances, etc.?: No Are you currently unemployed and looking for a job?: No Are you interested in more education?: No Please select the resources that you would like help with: None Currently or been in a relationship where the following occur: No concerns reported THRIVE Score: 0 AUDIT C Alcohol Use Questionnaire (AUDIT-C) 1. How often do you have a drink containing alcohol?: Monthly or less 2. How many drinks containing alcohol do you have on a typical day when you are drinking?: 1 or 2 3. How often do you have six or more drinks on one occasion?: Never Total Score: 1 Score Reviewed/Action Taken: Yes MARKEL-7 AMB Questionnaire MARKEL-7 Date MARKEL - 7 assessed: 03/19/24 Feeling nervous, anxious, or on edge: 0 = Not at all Not being able to stop or control worryin = Not at all Worrying too much about different things: 0 = Not at all Trouble relaxin = Not at all Being so restless that it is hard to sit still: 0 = Not at all Becoming easily annoyed or irritable: 0 = Not at all Feeling afraid as if something awful might happen: 0 = Not at all Total MARKEL-7 score (0-4 normal; 5-9 mild; 10-14 moderate; 15-21 severe): 0 Source: Developed by Drs. Guille Villa, Candy Bliss, Don Anderson and colleagues, with an educational macario from [employer]. MARKEL-7 Assessment Billing MARKEL-7 Assessment Tool: MARKEL-7 Assessment 48106 Review of Systems Const Denies chills, Denies fatigue, Denies fever(s) and Denies headache(s) ENT Details: occasional cold sores Denies dysphagia, Denies dizziness, Denies otalgia, Denies headache(s), Denies neck pain, Denies odynophagia and Denies sore throat Card Denies chest pain, Denies palpitations and Denies dyspnea Resp Denies chest congestion, Denies cough, Denies dyspnea and Denies wheezing GI Denies abdominal pain, Denies constipation, Denies dysphagia, Denies heartburn, Denies diarrhea, Denies nausea, Denies odynophagia and Denies vomiting Denies difficulty voiding, Denies nocturia, Reports hot flashes (on and off) and Denies dysuria Musc Reports back pain (recurrent - (+) scoliosis), Denies arthralgias and Denies neck pain Skin/Breast Denies rash Neuro Denies dizziness and Denies headache(s) Psych Denies anxiety and Denies depression Endo Denies fatigue and Denies palpitations Alan/Lymph Denies easy bruising Aller/Immun Denies wheezing Physical exam (Primary Care) Vital Signs: Last Vital Signs Pulse 63 03/19/24 10:37 BP 112/82 03/19/24 10:37 Pulse Ox 96 03/19/24 10:37 Oxygen Delivery Method Room Air 03/19/24 10:37 BMI result Body Mass Index 15.9 Tobacco/Smoking Status: Tobacco use Status Tobacco use date assessed 03/19/24 03/19/24 10:39 Patient Tobacco Use Status Never used Tobacco 03/19/24 10:39 e-Cigarette/Vaping Use Never Used 03/19/24 10:39 PHQ-9: PHQ-9 Score PHQ-9: Total score 0 03/19/24 10:46 Depression Screening Interpretation: Negative Thrive Assessment: Date of Thrive Assessment Date Thrive assessed 03/19/24 03/19/24 10:39 Currently or been in a relationship where the following occur: No concerns reported Const General: no acute distress and alert HENMT Ears: TM's normal bilaterally and EAC's normal Throat: Yes posterior oropharynx normal and Yes tonsils normal (no TP congestion) Neck Neck: Yes no lymphadenopathy and Yes supple Thyroid: Thyroid normal Resp Auscultation: clear to auscultation bilaterally, no rales and no wheezes Cardio Rate: regular rate Rhythm: regular rhythm Heart sounds: no murmurs GI Palpation (GI): Soft to palpation and nontender Auscultation: normal bowel sounds General: Yes no CVA tenderness Back/Spine/Pelvis Back: no CVA tenderness Thoracic/Lumbar Spine: Thoracic/lumbar scoliosis and lumbar spinal tenderness (mild) Skin Rashes: no rashes Extrem General: Yes no clubbing, cyanosis or edema Office Procedures Flu Questionnaire Does the patient have a severe egg allergy?: No Immunizations Fluarix Triv 0822-3227 (PF) 45 mcg (15 mcg x 3)/0.5 mL IM syringe Performing Provider: Ochoa Jaramillo MD [facility] Documented (not given) by: ROBERTO CARLOS Daniels on 03/19/24 10:49 Reason Not Given: Received Previously Results Reviewed Results Reviewed: Laboratory Tests 02/02/23 03/14/24 03/14/24 09:32 08:54 Unknown WBC 4.0 L Hgb 11.4 L Hct 34.8 L Plt Count 221 Sodium 141 Potassium 3.9 Creatinine 0.75 Estimated GFR > 60 Fasting Glucose 90 Calcium 9.1 AST 19 ALT 14 Triglycerides 91 Cholesterol 264 H 237 H LDL Cholesterol, Calc 120 H 103 H HDL Cholesterol 116 25-OH Vitamin D Total 34.2 TSH 2.12 Ur Specific [place] 1.010 Urine Protein Negative Urine Glucose (UA) Negative Urine Blood Negative Urine Nitrite Negative Ur Leukocyte Esterase Negative Coding Level of Care Code Est Pt Level 4 (97058) Diagnoses Trigeminal neuralgia of right side of face G50.0 Scoliosis of thoracolumbar spine, unspecified scoliosis type M41.9 Scoliosis type: unspecified scoliosis Spinal region: thoracolumbar Benign essential hypertension I10 Recurrent cold sores B00.1 GERD without esophagitis K21.9 Osteopenia, unspecified location M85.80 Osteopenia location: unspecified Menopausal symptoms N95.1 Additional Codes MARKEL-7 Assessment Billing - MARKEL-7 Assessment Tool: MARKEL-7 Assessment [id number] ([id number]) Assessment & Plan Assessment & Plan (1) Trigeminal neuralgia of right side of face: Code(s): G50.0 - Trigeminal neuralgia Category: Medical Plan: Continue Carbamazepine 200 mg 1/2 to 1 tablet BID - she takes this PRN now as she had not had a flare up in a while Will consider referring back to neurosurgery (Dr. Sebastian) for further management and repeat glycerol rhizotomy only when needed (2) Scoliosis: Code(s): M41.9 - Scoliosis, unspecified Category: Medical Qualifiers: Scoliosis type: unspecified scoliosis Spinal region: thoracolumbar Qualified Code(s): M41.9 - Scoliosis, unspecified Plan: (+) thoracolumbar scoliosis seen incidentally on chest x-rays done back in 2008 She relates (+) recurrent back pain, often towards the end of the day and after prolonged standing Have advised that unless her scoliosis is severe, there is really not much else in terms of intervention that is necessary Have offered to send her for repeat thoracolumbar spine x-rays for further evaluation but patient declined - states that she can manage her back pains so far and does not wish to have anything else done at this time (3) Benign essential hypertension: Code(s): I10 - Essential (primary) hypertension Category: Medical Plan: Reinforced low sodium diet - goal is systolic BP of at least 130 mm or less She has Lisinopril 2.5 mg QD that she admits taking only as needed - recalls feeling dizzy often when she was taking this daily in the past States that she has not taken this in the past couple of weeks but took her dose this morning before coming in - BP is lower today at 96/70 Have advised patient to now completely stop taking her Lisinopril as it does not look like she really needs to stay on it at this time but she prefers to have her Rx on hand if she needs it Have advised her again to at least get her blood pressure checked a couple of times a month just to keep an eye on it (4) Recurrent cold sores: Code(s): B00.1 - Herpesviral vesicular dermatitis Category: Medical Plan: Continue Acyclovir 200 mg TID PRN - Rx refilled (5) GERD without esophagitis: Code(s): K21.9 - Gastro-esophageal reflux disease without esophagitis Category: Medical Plan: Dietary restrictions reinforced Continue Omeprazole 20 mg QD - takes this also only as needed now (6) Osteopenia: Code(s): M85.80 - Other specified disorders of bone density and structure, unspecified site Category: Medical Qualifiers: Osteopenia location: unspecified Qualified Code(s): M85.80 - Other spe cified disorders of bone density and structure, unspecified site Plan: BMD done back in March 2022 revealed (+) osteopenia based on the lowest T- score value of -1.9 in the femoral neck States that she had a BMD done several years ago in [place] but as we do not have a copy of this to compare against her current results and patient is not sure now where she had it done, we will consider her recent BMD in March 2022 as her index scan at this time Patient is encouraged to continue to stay active and exercise regularly, and to continue taking her daily Calcium and Vitamin D supplements We will consider getting repeat BMD for follow up next year (2024) (7) Menopausal symptoms: Code(s): N95.1 - Menopausal and female climacteric states Category: Medical Plan: States that she has tried cutting back and weaning herself off her BCP/hormone Rx previously but finds that taking it less than 3 times a week results in a significant increase in her hot flashes - states that she has just been taking her Prempro at 2 to 3 times a week regularly now Have discussed with patient again that we now have Veozah available and this is actually indicated for menopausal symptoms with much less potential side effects compared to hormonal therapy and if she wants, we can try switching her over but patient DECLINED and prefers to continue on her current Rx Plan She has declined getting her Cologuard test repeated Follow up in 6 months Orders: Orders Influenza [id number] Immunization Today Z23 - Encounter for immunization Medications: Changed From omeprazole 20 mg PO ONCE PRN To omeprazole 20 mg PO .QD PRN heartburns Refilled acyclovir 200 mg PO TID 10 days 30 caps 3RF B00.1 - Herpesviral vesicular dermatitis conj estrog-medroxyprogest torsten 0.45-1.5 mg (Prempro) 1 tab PO .QOD 28 tabs 3RF lisinopril 2.5 mg PO DAILY 90 tabs 0RF I10 - Essential (primary) hypertension
== END 2024-03-19 11:16 | disposition home or self-care (01) ==
PROVIDERS: PCP Internal Medicine; Visit Provider Internal Medicine
DX: G50.0 Trigeminal neuralgia (principal); M41.9 Scoliosis, unspecified; I10 Essential (primary) hypertension; B00.1 Herpesviral vesicular dermatitis; K21.9 Gastro-esophageal reflux disease without esophagitis; M85.80 Other specified disorders of bone density and structure, unspecified site; N95.1 Menopausal and female climacteric states; Z23 Encounter for immunization

== ENCOUNTER → 2024-03-19 10:34 | Outpatient (BNVA) | payer MEDICARE, OTHER, SELFPAY | PROVIDERS: PCP Internal Medicine; Visit Provider Internal Medicine | DX: G50.0 Trigeminal neuralgia (principal); M41.9 Scoliosis, unspecified; I10 Essential (primary) hypertension; B00.1 Herpesviral vesicular dermatitis; K21.9 Gastro-esophageal reflux disease without esophagitis; M85.80 Other specified disorders of bone density and structure, unspecified site; N95.1 Menopausal and female climacteric states; Z79.899 Other long term (current) drug therapy | CPT/HCPCS: 90471; 96127; 99212 ==

== ENCOUNTER 2024-09-11 12:46 | Outpatient (AMB) | payer MEDICARE, OTHER, SELFPAY ==
[2024-09-11 13:11] VITALS: BP 116/84; PULSE 92; O2SAT 99; BMI 16.0
--- NOTE | 2024-09-11 13:11 | A.OFFVIS_ITS ---
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: No Accompanied by: Self / Same As Patient Allergies No Known Allergies Allergy (Verified 09/11/24 13:28) Medication List - Last Reconciled 09/11/24 by Ochoa Jaramillo MD acyclovir 200 mg PO TID 10 days conj estrog-medroxyprogest torsten 0.45-1.5 mg (Prempro) 1 tab PO .QOD lisinopril 2.5 mg PO DAILY omeprazole 20 mg PO .QD PRN Do you need a note to return to daycare/school/sports/work: No HPI [facility] G0439 HPI Details Patient comes in today for her Annual Medicare Wellness Exam AND follow up visit States that she currently feels okay She denies any headaches or dizziness Denies any chest pains, no SOB No nausea/vomiting, no abdominal pain No change in bowel habits noted She denies any acute urinary symptoms States that she continues to experience recurrent menopausal symptoms but her current Rx (Prempro), taken 2 to 3 times a week helps a lot in keeping her symptoms tolerable and she would like to be continued on her current medications IPPE/AWV: c/o of Annual Wellness Visit, subsequent visit. Medical / Social History Reviewed Past Medical History Yes . [place] of Care / Care Team list updated Yes . Surgical/Hospitalization History Yes . Current Medications (including OTC and supplements) Yes . Family History Yes . Tobacco Control form Yes . AUDIT-C (Alcohol use) form Yes . Illicit drug use in Social History Yes . Current diagnosis of depression? No Appropriate PHQ2/PHQ9 completed Yes . Data entered by Apron Cleaner and reviewed by provider Home Safety Throw rugs? No Grab bars? No Raised toilet seats? No Working smoke detectors? Yes Working carbon monoxide detectors? Yes Data entered by Apron Cleaner and reviewed by provider Activities of Daily Living (ADLs) Difficulty bathing or showering? No Difficulty dressing? No Difficulty using the toilet? No Difficulty getting in and out of bed? No Difficulty walking? No Receives help from another person with any of the above tasks? No Instrumental Activities of Daily Living (IADLs) Uses the telephone without help Gets to places out of walking distance without help Goes shopping for groceries without help Prepares own meals without help Does own minor home maintenance without help Does own laundry without help Does own housework without help Manages own money without help Currently takes medications? Yes Takes medication without help End-of-Life Planning Discussed advance directive Yes Advance directive on file Discussed wishes expressed in advance directive agreed to following patient's wishes Fall Risk: Fall History Have you had any falls with injury in the past year? No . Have you had two or more falls in the past year? No . Fall Risk Assessment: No falls in the past year . HRA filled out by the patient, reviewed by Provider and scanned. [facility] Medical History Scoliosis Diverticulitis Osteopenia GERD without esophagitis Colon cancer screening declined Recurrent cold sores Benign essential hypertension Trigeminal neuralgia of right side of face Surgical History History of surgery Family History Father Heart disease Diabetes Hypertension CVD (cardiovascular disease) Mother Brain tumor Brother Stroke Sister No problems noted. Sister No problems noted. Daughter No problems noted. Social History Housing: House Alcohol intake: current Alcohol intake frequency: holidays/special occasions only Patient Tobacco Use Status: Never used Tobacco e-Cigarette/Vaping Use: Never Used Second Hand Smoke Exposure: Yes service: No Current occupational status: retired Cognitive needs: No Hearing needs: No Vision needs: Yes (reading glasses) Questionnaire Medicare Wellness Checkup [age] What gender do you identify with?: female During the past 4 weeks, how much have you been bothered by emotional problems such as feeling anxious, depressed, irritable, sad or downhearted, and blue?: not at all During the past 4 weeks, has your physical & emotional health limited your social activities with family, friends, neighbors, or groups?: not at all During the past 4 weeks, how much bodily pain have you generally had?: very mild pain During the past 4 weeks, what was the hardest physical activity you could do for at least 2 minutes?: heavy Can you get to places out of walking distance without help? (For eg., can you travel alone on buses, taxis or drive your car?): Yes Can you go shopping for groceries or clothes without someone's help?: Yes Can you prepare your own meals?: Yes Can you do your housework without help?: Yes Because of any health problems, do you need the help of another person with your personal care needs such as eating, bathing, dressing or getting around the house?: No Can you handle your own money without help?: Yes During the past 4 weeks, how would you rate your health in general?: very good During the past 4 weeks how have things been going for you?: very well; could hardly better Are you having difficulties driving your car?: no Do you always fasten your seat belt when you are in a car?: yes, usually Have you fallen 2 or more times in the past year?: No Are you afraid of falling?: No Are you a smoker?: no During the past 4 weeks, how many drinks of wine, beer, or other alcoholic beverages did you have?: 2-5 drinks per week Do you exercise for about 20 minutes 3 or more times a week?: yes, most of the time Have you been given information to help with the following?: no: Hazards in your house that might hurt you? and no: Keeping track of your medications? How often do you have trouble taking medicines the way you have been told to take them?: I always take medicine as prescribed How confident are you that you can control & manage most of your health problems?: very confident What is your race?: White Mini Mental State Exam (MMSE) Orientation What is the (year) (season) (date) (day) (month)?: year, season, date, day and month Where are we (state) (county) (town or city) (hospital) (floor)?: state, county, town or city, hospital/clinic and floor Score Score: 10 Activity of Daily Living Bathing - sponge bath, tub bath or shower: receives no assistance (gets in/out by self, if usual bathing means Dressing - getting clothes from closets & drawers, including inner/outer garments & fasteners.: gets clothes & gets completely dressed without help Toileting - going to the 'toilet room' for urine/bowel elimination & cleaning self/arranging clothes: goes to toilet room, cleans self, arranges clothes without help Transfer: moves in & out of bed and chair without help (may use support object) Continence: controls urination/bowel movements completely by self Feeding: feeds self without help Total Score: 0 Information obtained from: patient Using telephone: independent Traveling: independent Shopping: independent Preparing meals: independent Housework: independent Taking medicine: independent Managing money: independent PHQ-9 Over the last 2 weeks, how often have you been bothered by any of the following problems? 1. Little interest or pleasure in doing things: not at all 2. Feeling down, depressed, or hopeless: not at all 3. Trouble falling or staying asleep, or sleeping too much: not at all 4. Feeling tired or having little energy: not at all 5. Poor appetite or overeating: not at all 6. Feeling bad about yourself - or that you are a failure or have let yourself or your family down: not at all 7. Trouble concentrating on things, such as reading the newspaper or watching television: not at all 8. Moving or speaking so slowly that other people could have noticed. Or the opposite - being so fidgety or restless that you have been moving around a lot more than usual: not at all 9. Thoughts that you would be better off or of hurting yourself in some way: not at all Total score: 0 Depression Screening Interpretation: Negative Depression Screening Done: Yes [id number] - PHQ-9 Billing: Yes Source: Developed by Drs. Guille Villa, Candy Bliss, Don Anderson and colleagues, with an educational macario from [employer]. PHQ-2/PHQ-9 PHQ-2 Over the last 2 weeks, how often have you been bothered by any of the following problems? 1. Little interest or pleasure in doing things: not at all 2. Feeling down, depressed, or hopeless: not at all Total score: 0 If score is 3 or greater, continue 3. Trouble falling or staying asleep, or sleeping too much: not at all 4. Feeling tired or having little energy: not at all 5. Poor appetite or overeating: not at all 6. Feeling bad about yourself - or that you are a failure or have let yourself or your family down: not at all 7. Trouble concentrating on things, such as reading the newspaper or watching television: not at all 8. Moving or speaking so slowly that other people could have noticed. Or the opposite - being so fidgety or restless that you have been moving around a lot m ore than usual: not at all 9. Thoughts that you would be better off or of hurting yourself in some way: not at all Total score: 0 0-4 None-Minimal, 5-9 Mild, 10-14 Moderate, 15-19 Moderately Severe, 20-27 Severe Source: Developed by Drs. Guille Villa, Candy Bliss, Don Anderson and colleagues, with an educational macario from [employer]. Thrive Questionnaire Date Thrive assessed: 09/11/24 I am a: Patient What is your living situation today?: I have a steady place to live Within the past 12 months, did the food you bought not last and you didn't have the money to get more?: Never true Within the past 12 months, did you worry whether your food would run out before you got money to buy more?: Never true Do you have trouble paying for medicines?: No Do you have trouble getting transportation to medical appointments?: No Do you have trouble paying your heating and electricity bill?: No Do you have trouble taking care of your child, family member or friend?: No Do you have trouble with day-to-day activities such as bathing, preparing meals, shopping, managing finances, etc.?: No Are you currently unemployed and looking for a job?: No Are you interested in more education?: No Please select the resources that you would like help with: None Currently or been in a relationship where the following occur: No concerns reported THRIVE Score: 0 MARKEL-7 AMB Questionnaire MARKEL-7 Date MARKEL - 7 assessed: 03/19/24 Source: Developed by Drs. Guille Villa, Candy Bliss, Don Anderson and colleagues, with an educational macario from [employer]. Review of Systems Const Denies chills, Denies fatigue, Denies fever(s) and Denies headache(s) ENT Denies dysphagia, Denies dizziness, Denies otalgia, Denies headache(s), Denies neck pain, Denies odynophagia and Denies sore throat Card Denies chest pain, Denies palpitations and Denies dyspnea Resp Denies chest congestion, Denies cough and Denies dyspnea GI Denies abdominal pain, Denies constipation, Denies dysphagia, Denies heartburn, Denies diarrhea, Denies nausea, Denies odynophagia and Denies vomiting Denies difficulty voiding, Denies nocturia, Reports hot flashes (on and off) and Denies dysuria Musc Reports back pain (recurrent - (+) scoliosis), Denies arthralgias and Denies neck pain Skin/Breast Denies rash Neuro Denies dizziness and Denies headache(s) Psych Denies anxiety and Denies depression Endo Denies fatigue and Denies palpitations Alan/Lymph Denies easy bruising Physical Exam Vital Signs: Last Vital Signs Pulse 92 09/11/24 13:11 BP 116/84 09/11/24 13:11 Pulse Ox 99 09/11/24 13:11 Oxygen Delivery Method Room Air 09/11/24 13:11 BMI result Body Mass Index 16.0 IPPE/AWV: Balance Romberg Yes . Tandem walk Yes . Walk and Turn Yes . Rise from sit to stand Yes . Vision Corrective lens No Vision screen pass Hearing Whisper test pass . Urinary incont. no. EKG Not clinically necessary. Const General: no acute distress and alert Orientation/consciousness: patient oriented x3 HEENT Head: Yes normocephalic and Yes atraumatic Ears: TM's normal bilaterally and EAC's normal General nose exam: No nasal discharge present Face and sinus: Yes normal facial exam and Yes sinuses nontender Throat: Yes posterior oropharynx normal and Yes tonsils normal (no TP congestion noted) Eyes Eyelids: Yes eyelids normal Conjunctivae: conjunctivae normal Pupils: Equal, round and reactive pupils present EOM: EOMs intact bilaterally Neck Neck: Yes no lymphadenopathy and Yes supple Thyroid: Thyroid normal Resp Auscultation: clear to auscultation bilaterally, no rales and no wheezes Cardio Rate: regular rate Rhythm: regular rhythm Heart sounds: no murmurs GI Palpation (GI): Soft to palpation, nontender and No hepatosplenomegaly present Auscultation: normal bowel sounds General: Yes no CVA tenderness Back/Spine/Pelvis Back: no CVA tenderness Thoracic/Lumbar Spine: thoracic and lumbar spine normal to inspection Skin Lesions: no lesions Rashes: no rashes Neuro General: patient oriented x3, moves all extremities, no focal motor deficits and CN's II-XI intact bilaterally Cranial nerves: Yes Equal, round and reactive pupils present Cognition (Neuro): normal cognition Gait exam (Neuro): Normal gait present Extrem General: Yes no clubbing, cyanosis or edema Psych Thought process: Normal thought process present Assessment & Plan Assessment & Plan (1) Medicare annual wellness visit, subsequent: Code(s): Z00.00 - Encounter for general adult medical examination without abnormal findings Plan: HRA form completed and discussed with patient; form will be scanned into patient's chart DOREEN updated Patient continues to decline referral for screening colonoscopy; states that she has Hx of diverticulitis and does not want to risk triggering her diverticulitis by going for a colonoscopy, which is an interventional procedure States that she had a Cologuard testing done about 2 to 3 years ago that came out negative and would be willing to get this done again - Cologuard was ordered back in February 2024 and patient states that she received the kit but never did get the testing done Have offered to reorder Cologuard but patient states that she does not want to deal with this at this time She had her annual mammogram last done in August 2023, which came out negative - patient states that she does not wish to go for any further mammogram screening at present She also has not had her yearly pap and 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 Sebastian) for further management and repeat glycerol rhizotomy only when needed (3) Scoliosis: Code(s): M41.9 - Scoliosis, unspecified Qualifiers: Scoliosis type: unspecified scoliosis Spinal region: thoracolumbar Qualified Code(s): M41.9 - Scoliosis, unspecified Plan: (+) thoracolumbar scoliosis seen incidentally on chest x-rays done back in 2008 She relates (+) recurrent back pain, often towards the end of the day and after prolonged standing Have advised that unless her scoliosis is severe, there is really not much else in terms of intervention that is necessary Have offered to send her for repeat thoracolumbar spine x-rays for further evaluation but patient declined - states that she can manage her back pains so far and does not wish to have anything else done at this time (4) Benign essential hypertension: Code(s): I10 - Essential (primary) hypertension Plan: Reinforced low sodium diet - goal is systolic BP of at least 130 mm or less She has Lisinopril 2.5 mg QD that she admits taking only as needed - recalls feeling dizzy often when she was taking this daily in the past States that she has not taken this in the past couple of weeks but took her dose this morning before coming in - BP is lower today at 96/70 Have advised patient to completely stop taking her Lisinopril as it does not look like she really needs to stay on it at this time but she prefers to have her Rx on hand if she needs it Have advised her again to at least get her blood pressure checked a couple of times a month for monitoring purposes (5) Recurrent cold sores: Code(s): B00.1 - Herpesviral vesicular dermatitis Plan: Continue Acyclovir 200 mg TID PRN (6) GERD without esophagitis: Code(s): K21.9 - Gastro-esophageal reflux disease without esophagitis Plan: Dietary restrictions reinforced Continue Omeprazole 20 mg QD - takes this also only as needed (7) Osteopenia: Code(s): M85.80 - Other specified disorders of bone density and structure, unspecified site Qualifiers: Osteopenia location: unspecified Qualified Code(s): M85.80 - Other specified disorders of bone density and structure, unspecified site Plan: BMD done back in March 2022 revealed (+) osteopenia based on the lowest T- score value of -1.9 in the femoral neck States that she had a BMD done several years ago in [place] but as we do not have a copy of this to compare against her current results and patient is not sure now where she had it done, we will consider her recent BMD in March 2022 as her index scan at this time Patient is encouraged to continue to stay active and exercise regularly, and to continue taking her daily Calcium and Vitamin D supplements We will consider getting repeat BMD for follow up later this year (2024) (8) Menopausal symptoms: Code(s): N95.1 - Menopausal and female climacteric states Plan: States that she has tried cutting back and weaning herself off her BCP/hormone Rx previously but finds that taking it less than 3 times a week results in a significant increase in her hot flashes - states that she has just been taking her Prempro at 2 to 3 times a week regularly now Have discussed with patient again that we now have Veozah available and this is actually indicated for menopausal symptoms with much less potential side effects compared to hormonal therapy and if she wants, we can try switching her over but patient DECLINED and prefers to continue on her current Rx Plan She has declined getting her Cologuard test repeated today Follow up in 6 months Quality Reporting (2019) Depression/Bipolar (159/160/161/177) PHQ-9: Total score: 0 Coding Level of Care Code Medicare Subsequent (G0439) Est Pt Level 4 (55361) Diagnoses Medicare annual wellness visit, subsequent Z00.00 Trigeminal neuralgia of right side of face G50.0 Scoliosis of thoracolumbar spine, unspecified scoliosis type M41.9 Scoliosis type: unspecified scoliosis Spinal region: thoracolumbar Benign essential hypertension I10 Recurrent cold sores B00.1 GERD without esophagitis K21.9 Osteopenia, unspecified location M85.80 Osteopenia location: unspecified Menopausal symptoms N95.1 Additional Codes PHQ-9 - 62547 - PHQ-9 Billing: Yes ([id number])
== END 2024-09-11 13:36 | disposition home or self-care (01) ==
LOC: HO.HMCH 12:46
PROVIDERS: PCP Internal Medicine; Visit Provider Internal Medicine
DX: Z00.00 Encounter for general adult medical examination without abnormal findings (principal); G50.0 Trigeminal neuralgia; M41.9 Scoliosis, unspecified; I10 Essential (primary) hypertension; B00.1 Herpesviral vesicular dermatitis; K21.9 Gastro-esophageal reflux disease without esophagitis; M85.80 Other specified disorders of bone density and structure, unspecified site; N95.1 Menopausal and female climacteric states

== ENCOUNTER → 2024-09-11 12:46 | Outpatient (BNVA) | payer MEDICARE, OTHER, SELFPAY | PROVIDERS: PCP Internal Medicine; Visit Provider Internal Medicine | DX: Z00.00 Encounter for general adult medical examination without abnormal findings (principal); G50.0 Trigeminal neuralgia; M41.9 Scoliosis, unspecified; I10 Essential (primary) hypertension; B00.1 Herpesviral vesicular dermatitis; K21.9 Gastro-esophageal reflux disease without esophagitis; M85.80 Other specified disorders of bone density and structure, unspecified site; N95.1 Menopausal and female climacteric states | CPT/HCPCS: 96127; 99212 ==

== ENCOUNTER 2025-03-13 12:15 | Outpatient (AMB) | payer MEDICARE, OTHER, SELFPAY ==
[2025-03-13 12:42] VITALS: BP 122/84; BMI 15.9
--- NOTE | 2025-03-13 12:42 | MHC.PC.OV ---
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 Accompanied by: Self / Same As Patient Allergies No Known Allergies Allergy (Verified 03/13/25 12:55) Medication List - Last Reconciled 03/13/25 by Ochoa Jaramillo MD acyclovir 200 mg PO TID 10 days conj estrog-medroxyprogest torsten 0.45-1.5 mg (Prempro) 1 tab PO .QOD lisinopril 2.5 mg PO DAILY omeprazole 20 mg PO .QD PRN Tobacco use date assessed: 03/13/25 Fall risk assessment: No Falls in past year Last assessed Fall Risk: 03/13/25 Dental Screening Dental Screen Date: 03/13/25 Did you have a dental visit in the last 12 months?: Yes Did you have a dental problem in the last 6 months where you did not have access to dental care?: No Was dental information given to patient?: Patient has dentist HPI 6mth f/u HPI Details Patient comes in today for her follow up visit States that she feels okay except for some on and off right shoulder pain and discomfort, which she states has been going on for about 4 months now Recalls that she was going down a slide/chute/tube with her grandaughter about 4 months ago when she extended out her right arm while going down the slide to slow herself down and thinks she ended up straining/injuring her right shoulder as her shoulder has been bothering her since States that she had trouble moving her right arm in the beginning but her shoulder symptoms have slowly improved over the past few months and she now has no more pain in her shoulder but states that she can still feel some discomfort in her shoulder with increased activity or when she lies down on her right side She denies any headaches or dizziness Denies any chest pains, no SOB No nausea/vomiting, no abdominal pain No change in bowel habits noted States that she is still experiencing recurrent menopausal symptoms but her current Rx (Prempro) helps in keeping her symptoms tolerable [facility] Medical History Scoliosis Diverticulitis Osteopenia GERD without esophagitis Colon cancer screening declined Recurrent cold sores Benign essential hypertension Trigeminal neuralgia of right side of face Surgical History History of surgery Family History Father Heart disease Diabetes Hypertension CVD (cardiovascular disease) Mother Brain tumor Brother Stroke Sister No problems noted. Sister No problems noted. Daughter No problems noted. Social History Housing: House Alcohol intake: current Alcohol intake frequency: holidays/special occasions only Patient Tobacco Use Status: Never used Tobacco e-Cigarette/Vaping Use: Never Used Second Hand Smoke Exposure: Yes service: No Current occupational status: retired Cognitive needs: No Hearing needs: No Vision needs: Yes (reading glasses) Questionnaire PHQ-9 Over the last 2 weeks, how often have you been bothered by any of the following problems? 1. Little interest or pleasure in doing things: not at all 2. Feeling down, depressed, or hopeless: not at all 3. Trouble falling or staying asleep, or sleeping too much: not at all 4. Feeling tired or having little energy: not at all 5. Poor appetite or overeating: not at all 6. Feeling bad about yourself - or that you are a failure or have let yourself or your family down: not at all 7. Trouble concentrating on things, such as reading the newspaper or watching television: not at all 8. Moving or speaking so slowly that other people could have noticed. Or the opposite - being so fidgety or restless that you have been moving around a lot more than usual: not at all 9. Thoughts that you would be better off or of hurting yourself in some way: not at all Total score: 0 Depression Screening Interpretation: Negative Depression Screening Done: Yes 27471 - PHQ-9 Billing: Yes Source: Developed by Drs. Guille Villa, Candy Bliss, Don Anderson and colleagues, with an educational macario from [employer]. Thrive Questionnaire Date Thrive assessed: 03/13/25 I am a: Patient What is your living situation today?: I have a steady place to live Within the past 12 months, did the food you bought not last and you didn't have the money to get more?: Never true Within the past 12 months, did you worry whether your food would run out before you got money to buy more?: Never true Do you have trouble paying for medicines?: No Do you have trouble getting transportation to medical appointments?: No Do you have trouble paying your heating and electricity bill?: No Do you have trouble taking care of your child, family member or friend?: No Do you have trouble with day-to-day activities such as bathing, preparing meals, shopping, managing finances, etc.?: No Are you currently unemployed and looking for a job?: No Are you interested in more education?: No Please select the resources that you would like help with: None Currently or been in a relationship where the following occur: No concerns reported THRIVE Score: 0 AUDIT C Alcohol Use Questionnaire (AUDIT-C) 1. How often do you have a drink containing alcohol?: 2-4 times a month 2. How many drinks containing alcohol do you have on a typical day when you are drinking?: 1 or 2 3. How often do you have six or more drinks on one occasion?: Never Total Score: 2 Score Reviewed/Action Taken: Yes MARKEL-7 AMB Questionnaire MARKEL-7 Date MARKEL - 7 assessed: 03/13/25 Feeling nervous, anxious, or on edge: 0 = Not at all Not being able to stop or control worryin = Not at all Worrying too much about different things: 0 = Not at all Trouble relaxin = Not at all Being so restless that it is hard to sit still: 0 = Not at all Becoming easily annoyed or irritable: 0 = Not at all Feeling afraid as if something awful might happen: 0 = Not at all Total MARKEL-7 score (0-4 normal; 5-9 mild; 10-14 moderate; 15-21 severe): 0 Source: Developed by Drs. Guille Villa, Candy Bliss, Don Anderson and colleagues, with an educational macario from [employer]. Review of Systems Const Denies chills, Denies fatigue, Denies fever(s) and Denies headache(s) ENT Denies dysphagia, Denies dizziness, Denies otalgia, Denies headache(s), Denies neck pain, Denies odynophagia and Denies sore throat Card Denies chest pain, Denies palpitations and Denies dyspnea Resp Denies chest congestion, Denies cough and Denies dyspnea GI Denies abdominal pain, Denies constipation, Denies dysphagia, Denies heartburn, Denies diarrhea, Denies nausea, Denies odynophagia and Denies vomiting Denies difficulty voiding, Denies nocturia, Reports hot flashes (on and off) and Denies dysuria Musc Reports back pain (recurrent - (+) scoliosis), Reports arthralgias (in the right shoulder, mild, on and off - see HPI) and Denies neck pain Skin/Breast Denies rash Neuro Denies dizziness and Denies headache(s) Psych Denies anxiety and Denies depression Endo Denies fatigue and Denies palpitations Alan/Lymph Denies easy bruising Physical exam (Primary Care) Vital Signs: Last Vital Signs BP 122/84 03/13/25 12:42 Oxygen Delivery Method Room Air 03/13/25 12:42 BMI result Body Mass Index 15.9 Tobacco/Smoking Status: Tobacco use Status Tobacco use date assessed 03/13/25 03/13/25 12:54 Patient Tobacco Use Status Never used Tobacco 03/13/25 12:54 e-Cigarette/Vaping Use Never Used 03/13/25 12:54 PHQ-9: PHQ-9 Score PHQ-9: Total score 0 03/13/25 12:54 Depression Screening Interpretation: Negative Thrive Assessment: Date of Thrive Assessment Date Thrive assessed 03/06/25 03/13/25 12:54 Currently or been in a relationship where the following occur: No concerns reported Const General: no acute distress and alert HENMT Ears: TM's normal bilaterally and EAC's normal Throat: Yes posterior oropharynx normal and Yes tonsils normal (no TP congestion) Neck Neck: Yes no lymphadenopathy and Yes supple Thyroid: Thyroid normal Resp Auscultation: clear to auscultation bilaterally, no rales and no wheezes Cardio Rate: regular rate Rhythm: regular rhythm Heart sounds: no murmurs GI Palpation (GI): Soft to palpation and nontender Auscultation: normal bowel sounds General: Yes no CVA tenderness Back/Spine/Pelvis Back: no CVA tenderness Thoracic/Lumbar Spine: Thoracic/lumbar scoliosis and lumbar spinal tenderness (mild) Skin Rashes: no rashes Extrem General: Yes no clubbing, cyanosis or edema Right upper extremity: shoulder/upper arm Details: tenderness (mild tenderness on deep palpation over the acromioclavicular ligaments) and normal ROM Coding Level of Care Code Est Pt Level 4 (73432) Diagnoses Trigeminal neuralgia of right side of face G50.0 Scoliosis of thoracolumbar spine, unspecified scoliosis type M41.9 Scoliosis type: unspecified scoliosis Spinal region: thoracolumbar Benign essential hypertension I10 Recurrent cold sores B00.1 Acute pain of right shoulder M25.511 Chronicity: acute GERD without esophagitis K21.9 Osteopenia, unspecified location M85.80 Osteopenia location: unspecified Menopausal symptoms N95.1 Additional Codes PHQ-9 - 06142 - PHQ-9 Billing: Yes ([id number]) Assessment & Plan Assessment & Plan (1) Trigeminal neuralgia of right side of face: Code(s): G50.0 - Trigeminal neuralgia Category: Medical Plan: Continue Carbamazepine 200 mg 1/2 to 1 tablet BID - she takes this PRN now as she had not had any flare ups in a while Will consider referring her back to neurosurgery (Dr. Sebastian) for further management and repeat glycerol rhizotomy only when needed (2) Scoliosis: Code(s): M41.9 - Scoliosis, unspecified Category: Medical Qualifiers: Scoliosis type: unspecified scoliosis Spinal region: thoracolumbar Qualified Code(s): M41.9 - Scoliosis, unspecified Plan: (+) thoracolumbar scoliosis seen incidentally on chest x-rays done back in 2008 She relates (+) recurrent back pain, often towards the end of the day and after prolonged standing Have advised patient that unless her scoliosis is severe, there is really not much else that we need to do in terms of intervention Have offered to send her for repeat thoracolumbar spine x-rays for further evaluation but patient declined - states that she can manage her back pains so far and does not wish to have anything else done at this time (3) Benign essential hypertension: Code(s): I10 - Essential (primary) hypertension Category: Medical Plan: Reinforced low sodium diet - goal is systolic BP of at least 130 mm or less She has Lisinopril 2.5 mg QD that she admits she is taking only as needed - recalls feeling dizzy often when she was taking this daily in the past Patient was advised at her last visit to completely stop taking her Lisinopril as it does not look like she really needs to stay on it but she prefers to have her Rx on hand if she needs it Have advised her again to at least get her blood pressure checked a couple of times a month for monitoring purposes (4) Recurrent cold sores: Code(s): B00.1 - Herpesviral vesicular dermatitis Category: Medical Plan: Continue Acyclovir 200 mg TID PRN (5) Right shoulder pain: Code(s): M25.511 - Pain in right shoulder Category: Medical Qualifiers: Chronicity: acute Qualified Code(s): M25.511 - Pain in right shoulder Plan: Have discussed with patient that this is most likely a shoulder sprain type of injury or in a worst-case scenario, she may have sustained some type of subluxation injury as she is still experiencing some symptoms in her shoulder even though it has been about 4 months now since her injury Will send patient for x-rays of the right shoulder RYDER for further evaluation (6) GERD without esophagitis: Code(s): K21.9 - Gastro-esophageal reflux disease without esophagitis Category: Medical Plan: Dietary restrictions reinforced Continue Omeprazole 20 mg QD - she takes this also only as needed (7) Osteopenia: Code(s): M85.80 - Other specified disorders of bone density and structure, unspecified site Category: Medical Qualifiers: Osteopenia location: unspecified Qualified Code(s): M85.80 - Other specified disorders of bone density and structure, unspecified site Plan: BMD done back in March 2022 revealed (+) osteopenia based on the lowest T-score value of -1.9 in the femoral neck States that she had a BMD done several years ago in [place] but as we do not have a copy of this to compare against her current results and patient is not sure now where she had it done, we will consider her recent BMD in March 2022 as her index scan at this time Patient is encouraged to continue to stay active and exercise regularly, and to continue taking her daily Calcium and Vitamin D supplements We will consider getting repeat BMD for follow up next year (2025) (8) Menopausal symptoms: Code(s): N95.1 - Menopausal and female climacteric states Category: Medical Plan: States that she has tried cutting back and weaning herself off her BCP/hormone Rx previously but finds that taking it less than 3 times a week results in a significant increase in her hot flashes - states that she has just been taking her Prempro at 2 to 3 times a week regularly now Have discussed with patient again that we now have Veozah available and this is actually indicated for menopausal symptoms with much less potential side effects compared to hormonal therapy and if she wants, we can try switching her over but patient DECLINED and prefers to continue on her current Rx Plan To return as scheduled in August 2025 for her AWV and follow up visit Patient is reminded that she will need to get her yearly labs done again just before she returns for her appointment in the spring Orders: Orders Complete Blood Count Auto Diff 09/11/25 D64.9 - Anemia, unspecified TSH reflex Free T4 09/11/25 E78.00 - Pure hypercholesterolemia, unspecified Vitamin B12 and Folate 09/11/25 E53.8 - Deficiency of other specified B group vitamins XR shoulder RT min 2V Today M25.511 - Pain in right shoulder Comprehensive [place]. Panel Fast 09/11/25 E78.00 - Pure hypercholesterolemia, unspecified Lipid Panel 09/11/25 E78.00 - Pure hypercholesterolemia, unspecified UA CC w/rflx Micro + Cult 09/11/25 R30.0 - Dysuria Vitamin D 25-OH Total 09/11/25 E55.9 - Vitamin D deficiency, unspecified
== END 2025-03-13 13:06 | disposition home or self-care (01) ==
LOC: HO.HMCH 12:15
PROVIDERS: PCP Internal Medicine; Visit Provider Internal Medicine
DX: G50.0 Trigeminal neuralgia (principal); M41.9 Scoliosis, unspecified; I10 Essential (primary) hypertension; B00.1 Herpesviral vesicular dermatitis; M25.511 Pain in right shoulder; K21.9 Gastro-esophageal reflux disease without esophagitis; M85.80 Other specified disorders of bone density and structure, unspecified site; N95.1 Menopausal and female climacteric states

== ENCOUNTER → 2025-03-13 12:15 | Outpatient (BNVA) | payer MEDICARE, OTHER, SELFPAY | PROVIDERS: PCP Internal Medicine; Visit Provider Internal Medicine | DX: M25.511 Pain in right shoulder (principal); G50.0 Trigeminal neuralgia; M41.9 Scoliosis, unspecified; I10 Essential (primary) hypertension; B00.1 Herpesviral vesicular dermatitis; K21.9 Gastro-esophageal reflux disease without esophagitis; M85.80 Other specified disorders of bone density and structure, unspecified site; N95.1 Menopausal and female climacteric states | CPT/HCPCS: 96127; 99212 ==

== ENCOUNTER 2025-03-15 09:34 | Outpatient (REF) | payer MEDICARE, OTHER, SELFPAY ==
--- NOTE | ~2025-03-15 | XR_ITS ---
EXAMINATION: XR SHOULDER, RIGHT CLINICAL INFORMATION: M25.511 - Pain in right shoulder COMPARISON: None available. TECHNIQUE: AP external rotation, Grashey, scapular Y, and axillary views of the right shoulder. FINDINGS: Normal bone mineralization. No fracture, dislocation, or suspicious bone lesion. Normal alignment. The glenohumeral joint is normal. The AC joint demonstrates mild spurring. There is a type I acromion. No undersurface spurring. The subacromial space is preserved. Remainder of the soft tissue and bony structures appear normal. XR/XR shoulder RT min 2V IMPRESSION: 1. Mild spurring of the AC joint. Otherwise normal examination. Electronically signed by: Des Oneil MD 03/15/2025 09:57 AM EDT
== END 2025-03-15 09:35 | disposition home or self-care (01) ==
LOC: HO.XRAY 09:34
PROVIDERS: PCP Internal Medicine; Visit Provider Internal Medicine
DX: M25.511 Pain in right shoulder (principal)
CPT/HCPCS: 73030

== ENCOUNTER → 2025-03-15 09:38 | Outpatient (BNV) | payer MEDICARE, OTHER, SELFPAY | PROVIDERS: PCP Internal Medicine; Visit Provider Radiology Diagnostic Radiology | DX: M25.711 Osteophyte, right shoulder (principal) | CPT/HCPCS: 73030 ==

== ENCOUNTER 2025-05-08 08:46 | Outpatient (AMB) | payer MEDICARE, OTHER, SELFPAY ==
--- NOTE | 2025-05-08 09:06 | A.OFFVIS_ITS ---
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 Patient reports pain in her shoulder after she was going down a slide with her grandchild and causing her arm to hyperextend back. Complaints of limited ROM. Her pain has been tolerable. History of cortisone injection in the past years ago. She is requesting a cortisone injection. 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 The symptoms began approximately four to six months ago after an incident on a slide where she put her arm out, resulting in a whiplash-like or pulling sensation and immediate pain. Although the initial pain has improved, she reports persistent symptoms. The patient experiences limited range of motion and pain with overhead activities, such as putting on a shirt or reaching into a cabinet. Her sleep is affected as she is unable to lie on her right side. She denies any numbness, tingling, or sensation of the shoulder popping out of joint. Past medical history is notable for a cortisone injection in her elbow approximately 40 years ago. She reports an intolerance to pain medications, which cause her to become violently ill. [facility] Medical History Scoliosis Diverticulitis Osteopenia GERD without esophagitis Colon cancer screening declined Recurrent cold sores Benign essential hypertension Trigeminal neuralgia of right side of face Surgical History History of surgery Family History Father Heart disease Diabetes Hypertension CVD (cardiovascular disease) Mother Brain tumor Brother Stroke Sister No problems noted. Sister No problems noted. Daughter No problems noted. Social History Housing: House Alcohol intake: current Alcohol intake frequency: holidays/special occasions only Patient Tobacco Use Status: Never used Tobacco e-Cigarette/Vaping Use: Never Used Second Hand Smoke Exposure: Yes service: No Current occupational status: retired Cognitive needs: No Hearing needs: No Vision needs: Yes (reading glasses) Review of Systems Const All systems reviewed & are unremarkable except as noted in HPI and below Physical Exam Vital Signs: BMI result Body Mass Index 15.8 Extrem Other: Right Shoulder: No drop arm noted. Full ROM in all planes. Pain is elicited with internal rotation behind the back. Pain is elicited with belly press test. Office Procedures AMB Joint Injection/Aspiration Joint Injection/Aspiration Primary Site: Right Shoulder Prep: site was prepped using aseptic technique, ethochloride spray was applied and injection warnings given Injected: 40 mg of, Decadron, with 3 mL of, 1% plain Lidocaine, 0.25% Bupivacaine and in the subcromial space Approach Used: posterolateral Procedure: The patient tolerated the procedure well and there was some relief with the local anesthesia Coding 02177 - Glenohumeral/Tronchanteric Bursa/Intraarticular Procedure code (CPT) selection complete Results Reviewed Results Reviewed: /XR shoulder RT min 2V 03/15/25 IMPRESSION: 1. Mild spurring of the AC joint. Otherwise normal examination. Assessment & Plan Assessment & Plan (1) Osteoarthritis of right shoulder: Code(s): M19.011 - Primary osteoarthritis, right shoulder Category: Medical Plan: The patient's right shoulder pain is attributed to rotator cuff irritation, likely exacerbated by a traumatic event. Physical examination reveals pain with resisted internal rotation but no signs of a full-thickness tear, such as a drop arm. X-ray findings show chronic changes, including acromioclavicular joint arthritis and humeral head sclerosis, which suggests some pre-existing pathology. A cortisone injection was administered to the right shoulder to manage the inflammation. If symptoms persist over the next 6-8 weeks she will contact our office, otherwise, f/u prn. Coding Level of Care Code New Pt Level 3 (37113) Add On Problem Visit Only Diagnoses Osteoarthritis of right shoulder M19.011 CPT Codes Coding - Joint 7: 90750 - Glenohumeral/Tronchanteric Bursa/Intraarticular ([id number])
[2025-05-08 09:16] VITALS: BMI 15.8
== END 2025-05-08 11:26 | disposition home or self-care (01) ==
LOC: HO.HOS 08:47
PROVIDERS: PCP Internal Medicine; Visit Provider Physician Assistant
DX: M19.011 Primary osteoarthritis, right shoulder (principal)
CPT/HCPCS: 20610; 99203

== ENCOUNTER → 2025-05-08 08:46 | Outpatient (BNVA) | payer MEDICARE, OTHER, SELFPAY | PROVIDERS: PCP Internal Medicine; Visit Provider Physician Assistant | DX: M19.011 Primary osteoarthritis, right shoulder (principal); M25.511 Pain in right shoulder; Z79.52 Long term (current) use of systemic steroids | CPT/HCPCS: 20610; 99202; J0665; J1100; J2003 ==